=== PATIENT | male | born 1995 | race African-American/Black ===

== ENCOUNTER 2022-05-24 19:08 | Emergency (ER) | payer MEDICAID ==
[~2022-05-24] VITALS: Ht 182.9 cm; Wt 54.0 kg
[2022-05-24 20:14] LABS: BASOPHILS % 0.6 % (0.0-2.0); EOSINOPHILS % 0.1 % (0.0-5.0); HEMATOCRIT. 39.9 % (42.0-52.0); HEMOGLOBIN. 13.2 g/dL (14.0-18.0); LYMPHOCYTES % 11.7 % (20.0-50.0); MEAN CORPUSCULAR HEMOGLOBIN 30.8 pg (28.0-32.0); MEAN CORPUSCULAR VOLUME 93.1 fL (80.0-94.0); MEAN PLATELET VOLUME 9.4 fl (7.4-10.4); MONOCYTES % 6.6 % (2.0-8.0); PLATELET 150 x1000/uL (130-400); RED BLOOD CELL COUNT 4.29 mill/uL (4.7-6.1); RED CELL DISTRIBUTION WIDTH 13.7 % (11.6-14.6)
[2022-05-24 20:21] LABS: CHLORIDE 100 mEq/L (98-107)
[2022-05-24 22:00] VITALS: BP 122/78
== END 2022-05-24 22:28 | disposition home or self-care (01) ==
LOC: ER 19:08
DX: R53.1 Weakness (principal); Z59.01 Sheltered homelessness
CPT/HCPCS: 36415; 80053; 85025; 99283